=== PATIENT | female | born 1980 | race Caucasian/White ===

== ENCOUNTER 2017-01-06 12:09 | Day surgery (SDC) | payer OTHER ==
[2017-01-06 12:15] VITALS: BMI 19.0
--- NOTE | 2017-01-06 12:47 | PDOC ---
History of Present Illness - History of Present Illness Initial Comments: 01/06/17 13:34 The patient is a 36 year old female who is A3 030, approximately 13 weeks , seen at another facility several days ago for spontaneous , sent to the ED by her SCOOP FILLER for persistent vaginal bleeding. She was seen by her SCOOP FILLER this morning in the office and was sent in for D&C. On evaluation, the patient denies abdominal bleeding, nausea, vomiting, fever, or chills. She denies any chest pain, lightheadedness, or shortness of breath. SCOOP FILLER: Dr. Maldonado <Geno Del Rosario - Last Filed: 01/06/17 15:41> - General History Source: Patient Exam Limitations: No Limitations <Shaheed Robertson - Last Filed: 01/06/17 16:01> - General Chief Complaint: Vaginal Bleeding Stated Complaint: R/O NEED FOR D&C Time Seen by Provider: 01/06/17 12:36 Past History <Geno Del Rosario - Last Filed: 01/06/17 15:41> - Past Medical History Other medical history: denies - Suicide/Smoking/Psychosocial Hx Smoking History: Never smoked Information on smoking cessation initiated: No Hx Alcohol Use: No Drug/Substance Use Hx: No Substance Use Type: None <Shaheed Robertson - Last Filed: 01/06/17 16:01> - Past Medical History Allergies/Adverse Reactions: Allergies Allergy/AdvReac Type Severity Reaction Status Date / Time No Known Allergies Allergy Verified 01/06/17 12:15 Home Medications: Ambulatory Orders NK [No Known Home Medication] 01/06/17 Review of Systems - Review of Systems Able to Perform ROS?: Yes Comments:: 01/06/17 13:37 GENERAL/CONSTITUTIONAL: No fever or chills. No weakness. HEAD, EYES, EARS, NOSE AND THROAT: No change in vision. No ear pain or discharge. No sore throat. CARDIOVASCULAR: No chest pain or shortness of breath. No lightheadedness. RESPIRATORY: No cough, wheezing, or hemoptysis. GASTROINTESTINAL: No nausea, vomiting, diarrhea or constipation. GENITOURINARY: +Vaginal bleedingx several days. No dysuria, frequency, or change in urination. MUSCULOSKELETAL: No joint or muscle swelling or pain. No neck or back pain. SKIN: No rash NEUROLOGIC: No headache, vertigo, loss of consciousness, or change in strength/ sensation. ENDOCRINE: No increased thirst. No abnormal weight change. HEMATOLOGIC/LYMPHATIC: No anemia, easy bleeding, or history of blood clots. ALLERGIC/IMMUNOLOGIC: No hives or skin allergy. <Geno Del Rosario - Last Filed: 01/06/17 15:41> *Physical Exam - Vital Signs Last Vital Signs Temp Pulse Resp BP Pulse Ox 98.4 F 80 18 111/64 99 01/06/17 12:12 01/06/17 12:12 01/06/17 12:12 01/06/17 12:12 01/06/17 12:12 - Physical Exam Comments: 01/06/17 13:38 GENERAL: Awake, alert, and fully oriented, in no acute distress HEAD: No signs of trauma EYES: PERRLA, EOMI, sclera anicteric, conjunctiva clear ENT: Auricles normal inspection, hearing grossly normal, nares patent, oropharynx clear without exudates. Moist mucosa NECK: Normal ROM, supple, no lymphadenopathy, JVD, or masses LUNGS: Breath sounds equal, clear to auscultation bilaterally. No wheezes, and no crackles HEART: Regular rate and rhythm, normal S1 and S2, no murmurs, rubs or gallops ABDOMEN: Soft, nontender, normoactive bowel sounds. No guarding, no rebound. No masses EXTREMITIES: Normal range of motion, no edema. No clubbing or cyanosis. No cords, erythema, or tenderness NEUROLOGICAL: Cranial nerves II through XII grossly intact. Normal speech, normal gait SKIN: Warm, Dry, normal turgor, no rashes or lesions noted. <Geno Del Rosario - Last Filed: 01/06/17 15:41> - Vital Signs Last Vital Signs Temp Pulse Resp BP Pulse Ox 98.4 F 80 18 111/64 99 01/06/17 12:12 01/06/17 12:12 01/06/17 12:12 01/06/17 12:12 01/06/17 12:12 <Shaheed Robertson - Last Filed: 01/06/17 16:01> ED Treatment Course - LABORATORY CBC & Chemistry Diagram: 01/06/17 13:10 01/06/17 13:10 - ADDITIONAL ORDERS Additional order review: 01/06/17 13:10 RBC 2.95 L MCV 87.9 MCHC 33.7 RDW 14.4 MPV 8.9 Neutrophils % 78.8 Lymphocytes % 14.6 Monocytes % 5.6 Eosinophils % 0.6 Basophils % 0.4 01/06/17 15:41 Transvaginal US, read and reviewed by Dr. Marks Impression: Thickened endometrial wall with hypechoic heterogenous density within the endometrial cavity measuring approximately 6 mm in thickness suggestive of debris/blood clots. No gestational sac is identified. Correlation with serial quantitaive serum beta hCG and follow up pelvis US is recommended. <Geno Del Rosario - Last Filed: 01/06/17 15:41> - LABORATORY CBC & Chemistry Diagram: 01/06/17 13:10 01/06/17 13:10 <Shaheed Robertson - Last Filed: 01/06/17 16:01> Medical Decision Making - Medical Decision Making 01/06/17 12:42 A portion of this note was documented by scribe services under my direction. I have reviewed the details of the note, within reason, and agree with the documentation with the following case summary and management plan written by me. Patient treated in the ED. Nursing notes are reviewed and incorporated into the medical decision-making. Vital signs reviewed. Peripheral IV access obtained by the nurse, laboratory studies are drawn and sent, reviewed and interpreted by myself. Vital Signs Temp Pulse Resp BP Pulse Ox 98.4 F 80 18 111/64 99 01/06/17 12:12 01/06/17 12:12 01/06/17 12:12 01/06/17 12:12 01/06/17 12:12 36-year-old female approximately 13 weeks sent in by Dr. Maldonado for persistent vaginal bleeding. The patient was recently seen at another hospital and had a miscarriage. The patient was seen by her plastics fabricator and assembler Dr. Maldonado and noted significant bleeding and sent the patient to the ED for potential D&C. Patient denies fever lightheaded or having abdominal pain. We'll obtain a transvaginal ultrasound and blood work potential D&C. There may be potential retained products of conception. We'll touch base with patient's plastics fabricator and assembler with results. 01/06/17 16:00 Ultrasound demonstrates thickened endometrial wall with hypoechoic heterogeneity density within the endometrial cavity occiput proximal 6 mm in thickness suggestive debris and blood clots. CBC, BMP 01/06/17 13:10 01/06/17 13:10 CMP Sodium 140 mmol/L (136-145) 01/06/17 13:10 Potassium 3.6 mmol/L (3.5-5.1) 01/06/17 13:10 Chloride 104 mmol/L (98-107) 01/06/17 13:10 Carbon Dioxide 25 mmol/L (21-32) 01/06/17 13:10 Anion Gap 11 (8-16) 01/06/17 13:10 BUN 5 mg/dL (7-18) L 01/06/17 13:10 Creatinine 0.4 mg/dL (0.55-1.02) L 01/06/17 13:10 Creat Clearance w eGFR > 60 (>60) 01/06/17 13:10 Random Glucose 87 mg/dL (74-106) 01/06/17 13:10 Calcium 8.1 mg/dL (8.5-10.1) L 01/06/17 13:10 Total Bilirubin 0.6 mg/dL (0.2-1.0) 01/06/17 13:10 AST 13 U/L (15-37) L 01/06/17 13:10 ALT 20 U/L (12-78) 01/06/17 13:10 Alkaline Phosphatase 57 U/L (45-117) 01/06/17 13:10 Total Protein 5.9 g/dl (6.4-8.2) L 01/06/17 13:10 Albumin 3.1 g/dl (3.4-5.0) L 01/06/17 13:10 Beta HCG, Quant 3983.2 mIU/ml 01/06/17 13:50 Beta HCG Beta HCG, Quant 3983.2 mIU/ml 01/06/17 13:50 01/06/17 16:01 Blood O positive. Pt continues to hvae persistent vaginal bleed. Case discussed with Dr. Maldonado. Pt is now NPO and will be slotted for D&C in OR today. Case discussed in detail with admitting physician including history, physical exam and ancillary studies. Admitting physician has assumed care for the patient, will follow all pending diagnostics and will complete the evaluation and treatment. <Shaheed Robertson - Last Filed: 01/06/17 16:01> *DC/Admit/Observation/Transfer - Attestations Scribe Attestion: 01/06/17 13:39 Documentation prepared by Geno Del Rosario, acting as medical equipment repair technician for Shaheed Robertson MD. <Geno Del Rosario - Last Filed: 01/06/17 15:41> - Discharge Dispostion Admit: Yes <Shaheed Robertson - Last Filed: 01/06/17 16:01> Diagnosis at time of Disposition: Vaginal bleeding - Discharge Dispostion Condition at time of disposition: Stable - Referrals Referrals: Alfonso Portillo [Primary Care Provider] -
[2017-01-06 13:16] LABS: BASOPHIL 0.4 % (0-2.0); EOSINOPHIL 0.6 % (0-4.5); MCH 29.6 pg (25.7-33.7); MCHC 33.7 g/dl (32.0-36.0); MEAN CELL VOLUME 87.9 fl (80-96); MEAN PLT VOLUME 8.9 fl (7.5-11.1); NEUTROPHILS 78.8 % (42.8-82.8); PLATELET COUNT 229 K/MM3 (134-434); RDW 14.4 % (11.6-15.6); WHITE BLOOD COUNT 11.3 K/mm3 (4.0-10.0)
[2017-01-06 13:41] LABS: ALBUMIN 3.1 g/dl (3.4-5.0); ANION GAP 11 (8-16); CALCIUM 8.1 mg/dL (8.5-10.1); CO2 25 mmol/L (21-32); CREATININE 0.4 mg/dL (0.55-1.02); GLUCOSE,RANDOM 87 mg/dL (74-106); SGOT/AST 13 U/L (15-37); SGPT/ALT 20 U/L (12-78)
[2017-01-06 13:43] LABS: ALK PHOS 57 U/L (45-117); BILIRUBIN,TOTAL 0.6 mg/dL (0.2-1.0); TOT PROT 5.9 g/dl (6.4-8.2)
[2017-01-06 13:45] LABS: INR 1.09 (0.82-1.09)
[2017-01-06] MEDS ORDERED: SODIUM CHLORIDE 1,000 ML IV SCH (16:00)
--- NOTE | 2017-01-06 17:39 | HP ---
Past Medical History - Primary Care Physician PCP:: Rosas Maldonado - Admission Chief Complaint: 36yo P0 with incomplete Ab at 13wks and active bleeding. History of Present Illness: Pt was seen at [facility] on 01/04/2017 with SAB at 13wks. The pt was seen in the office today and noted to have RPOC and heavy bleeding. She was referred to ER for evaluation. She is also found to have severe anemia. The pathologist at [facility] informed me that the specimen did not have placenta included. History Source: Patient, Medical Record Limitations to Obtaining History: No Limitations - Past Medical History BUSINESS DEVELOPMENT DIRECTOR: No: Alzheimer's, CVA, Dementia, Migraine, Multiple Sclerosis, Peripheral Neuropathy, Parkinson's, Seizure, Syncope, TIA, Vertigo, Other Cardiovascular: No: AFIB, Aneurysm, Aortic Insufficiency, Aortic Stenosis, CAD, CHF, Deep Vein Thrombosis, HTN, Hyperlipdemia, [place], Mitral Insufficiency, Mitral Stenosis, Murmur, Pulmonary Hypertension, Other Pulmonary: No: Asthma, Bronchitis, Cancer, COPD, O2 Dependent, Pneumonia, Previously Intubated, Pulmonary Embolus, Pulmonary Fibrosis, Sleep Apnea, Other Gastrointestinal: No: Ascites, Cancer, Constipation, Crohn's Disease, Diverticulitis, Diverticulosis, Esophageal Varices, Gastritis, GERD, GI Bleed, Hemorrhoids, Hiatal Hernia, Inflamatory Bowel Disease, Irritable Bowel Disease, Pancreatitis, Peptic Ulcer Disease, Ulcerative Colitis, Other Hepatobiliary: No: Cirrhosis, Cholelithiasis, Cholecystitis, Choledocholithiasis , Hepatitis A, Hepatitis B, Hepatitis C, Other Renal/: No: Renal Failure, Renal Inusuff, BPH, Cancer, Hematuria, Hemodialysis , Neurogenic Bladder, Renal Calculi, UTI, Other Reproductive: Yes: Other ...Para: 5 ...Spon : 4 (Partial molar x 1) Additional OB History: Hx of chlamydia in 2015 Heme/Onc: Yes: Anemia Infectious Disease: No: AIDS, C-Diff, Herpes Zoster, HIV, MRSA, STD's, Tuberculosis, VREF, Other Psych: No: Addictions, Anxiety, Bipolar, Depression, Panic, Psychosis, Schizophrenia, Other Musculoskeletal: No: Bursitis, Chronic low back pain, Hemiparesis, Hemiplegia, Osteoarthritis, Paraplegia, Other Rheumatology: No: Fibromyalgia, Gout, Lupus, Rheumatoid Arthritis, Sarcoidosis, Vasculitis, Other ENT: No: Allergic Rhinitis, Sinusitis, Other Endocrine: No: Kamlesh's Disease, Maryam's Disease, Diabetes Insipidus, Diabetes Mellitus, Hyperparathyroidism, Hyperthyroidism, Hypothyroidism, Osteopenia, SIADH, Other Dermatology: No: Basal Cell, Cellulitis, Eczema, Melanoma, Psoriasis, Squamous Cell, Other - Past Surgical History Hx Myomectomy: No Hx Transabdominal Cerclage: No Additional Surgical History: D&C x 4 - Smoking History Smoking history: Never smoked Have you smoked in the past 12 months: No - Alcohol/Substance Use Hx Alcohol Use: No History of Substance Use: reports: None - Social History ADL: Independent History of Recent Travel: No Home Medications - Allergies Allergies/Adverse Reactions: Allergies Allergy/AdvReac Type Severity Reaction Status Date / Time No Known Allergies Allergy Verified 01/06/17 12:15 - Home Medications Home Medications: Ambulatory Orders NK [No Known Home Medication] 01/06/17 Family Disease History - Family Disease History Family History: Unremarkable Review of Systems - Review of Systems Constitutional: reports: No Symptoms Eyes: reports: No Symptoms HENT: reports: No Symptoms Neck: reports: No Symptoms Cardiovascular: reports: No Symptoms Respiratory: reports: No Symptoms Gastrointestinal: reports: No Symptoms Genitourinary: reports: Vaginal Bleeding Breasts: reports: No Symptoms Reported Musculoskeletal: reports: No Symptoms Integumentary: reports: No Symptoms Neurological: reports: No Symptoms Endocrine: reports: No Symptoms Hematology/Lymphatic: reports: No Symptoms Psychiatric: reports: No Symptoms Pain Intensity: 4 (cramps) Physical Exam-SLOPE RUNNER Vital Signs: Vital Signs Temperature 98.4 F 01/06/17 12:12 Pulse Rate 80 01/06/17 12:12 Respiratory Rate 18 01/06/17 12:12 Blood Pressure 111/64 01/06/17 12:12 O2 Sat by Pulse Oximetry (%) 99 01/06/17 12:12 Constitutional: Yes: Well Nourished, No Distress, Calm Eyes: Yes: WNL, Conjunctiva Clear, EOM Intact HENT: Yes: WNL, Atraumatic, Normocephalic Neck: Yes: WNL, Supple, Trachea Midline Cardiovascular: Yes: WNL, Regular Rate and Rhythm Respiratory: Yes: WNL, Regular, CTA Bilaterally Gastrointestinal: Yes: WNL, Normal Bowel Sounds, Soft ...Rectal Exam: Yes: WNL Renal/: Yes: WNL Pelvis: Yes: WNL External Genitalia: Yes: Normal Internal Exam Deferred: No Vaginal Exam: Yes: Bleeding Cervix: Yes: Other (2cm dilated) Uterus: Yes: Boggy, Enlarged Adnexa: Normal: Left, Right Musculoskeletal: Yes: WNL Extremities: Yes: WNL Edema: No Integumentary: Yes: WNL Neurological: Yes: WNL, Alert, Oriented ...Motor Strength: WNL Psychiatric: Yes: WNL, Alert, Oriented Labs: CBC, BMP 01/06/17 13:10 01/06/17 13:10 Imaging - Results Ultrasound: Report Reviewed Assessment/Plan 36yo P0 with incomplete Ab and severe anemia. We discussed the tx options and I recomended D&C due to active bleeding and anemia. We discussed the risks, benefits, alternative of surgery, including but not limited to infection, scarring, infertility, amenorrhea, perforation, injury to surrounding structures , etc. I explained the possible need for addtional surgery to repair any complications. The pt verbalized her understanding and requested to proceed with surgery.
[2017-01-06] MEDS ORDERED: PROPOFOL 20 ML ONE ×2 (18:49)
[2017-01-06] MEDS ORDERED: ceFAZolin SODIUM 1 GM VIAL ONE (18:57)
[2017-01-06] MEDS ORDERED: ceFAZolin SODIUM 1 GM VIAL IVPB ONE (18:58)
[2017-01-06] MEDS ORDERED: KETOROLAC TROMETHAMINE 30 MG/1 ML VIAL ONE (19:07)
[2017-01-06] MEDS ORDERED: ACETAMINOPHEN 325 MG TABLET (FP) PO PRN (19:38)
[2017-01-06] MEDS ORDERED: oxyCODONE HCL 5 MG TABLET PO PRN (19:38)
[2017-01-06] MEDS ORDERED: ONDANSETRON 4 MG/2 ML VIAL IVPUSH PRN (19:38)
[2017-01-06] MEDS ORDERED: LACTATED RINGERS SOLUTION 1,000 ML IV SCH (19:45)
[2017-01-06 22:01] VITALS: PULSE 95; TEMP 98.9
[2017-01-06 22:02] VITALS: BP 116/63
--- NOTE | 2017-01-07 08:48 | OP ---
DATE OF OPERATION: 01/06/2017 PREOPERATIVE DIAGNOSES: Incomplete spontaneous , anemia. POSTOPERATIVE DIAGNOSES: Incomplete spontaneous , anemia. PROCEDURE: Suction dilatation and curettage. SURGEON: Rosas Maldonado MD BYPRODUCTS PUMP OPERATOR: None. ANESTHESIOLOGIST: Arturo Walsh DO ANESTHESIA: General. COMPLICATIONS: None. ESTIMATED BLOOD LOSS: 30 mL INTRAVENOUS FLUIDS: 300 mL of crystalloids. PATHOLOGY: Products of conception. FINDINGS: Examination under anesthesia revealed a small anteverted uterus with the cervical os open to approximately 1-2 cm. Patient was noted to have active bleeding from the cervix/uterus and products of conception were noted on curettage. No retained products of conception at the end of the procedure. Good hemostasis noted at the end of the procedure. PROCEDURE DESCRIPTION: The patient was met preoperatively. Risks, benefits, and alternatives of surgery were discussed in details. All questions were answered. The patient was then brought to the OR with IV running. She was placed on the surgical table in the supine position. General anesthesia was achieved without difficulty. The patient was then placed in a dorsal lithotomy position using adjustable Papo stirrups. The patient was examined under anesthesia with the findings as described above. A timeout procedure was conducted as per standard protocol. The patient was then prepped and draped in the usual sterile fashion. A vaginal speculum was introduced with good visualization of the cervix. The cervix was grasped with a single-tooth tenaculum. A 9-mm suction curette was then used to evacuate the products of conception from the uterus. Once the uterine cavity was emptied, gentle sharp curettage was done to assure no retained products of conception within endometrial cavity. The uterine cavity was noted to be empty. All of the instruments were removed from the patient. Sponge, lap, instrument counts were correct. The patient was noted to have good hemostasis. The patient was then returned to supine position and transferred to recovery room awake and in stable condition. Kwame [id number]
--- NOTE | 2017-01-10 14:15 | PATH ---
Surgical Pathology Report Patient Name: ESHA CHAVES [facility]. Rec. #: [id number] /Age/Gender: 1980 (Age: 36) / F Account: [id number] Location: AMBULATORY SURG Taken: 01/06/2017 Received: 01/07/2017 Reported: 01/10/2017 Physicians: Rosas Maldonado M.D. Specimen(s) Received PRODUCTS OF CONCEPTION Clinical History Missed spontaneous Final Diagnosis UTERINE CONTENTS, EVACUATION: CHORIONIC VILLI WITH DEGENERATIVE CHANGES CONSISTENT WITH PRODUCTS OF CONCEPTION, ALONG WITH DECIDUA WITH AREAS OF NECROSIS. Electronically Signed Rudy Francisco M.D. Gross Description Received in formalin labeled "products of conception," is a 9.0 x 7.5 x 1.2 cm aggregate of fry and red soft tissue fragments. No definite villous tissue or somatic tissue is identified. Rip Saw Operator sections are submitted in 3 cassettes. /01/07/2017 saudi01/07/2017
== END 2017-01-06 22:33 | disposition home or self-care (01) ==
LOC: JER 12:09 → JASUSAT 16:01 → J7W 21:08 → JASUSAT 22:33
PROVIDERS: ATTEND Obstetrics & Gynecology
PROC: 10D17ZZ Extraction of Products of Conception, Retained, Via Natural or Artificial Opening (ICD-10-PCS; principal; 2017-01-06 19:00)
DX: O03.4 Incomplete spontaneous abortion without complication (principal); D64.9 Anemia, unspecified
CPT/HCPCS: 36415; 76817-TC; 80053; 84702; 85025; 85610; 86850; 86900; 86901; 88305-TC; 94760; 99285-25